=== PATIENT | male | born 1990 | race Caucasian/White ===

== ENCOUNTER 2020-08-23 10:25 | Emergency (ER) | payer BC, SELFPAY ==
[2020-08-23 10:35] VITALS: BP 152/111; PULSE 79; RESP 20; TEMP 36.1; O2SAT 98; BMI 33.0
--- NOTE | 2020-08-23 10:49 | HMH.EDUTC ---
[facility] [place] Disposition Clinical Impression: Viral upper respiratory infection Disposition: Home, Self-Care Condition on Discharge: Good Instructions: Sore Throat, DI for COVID-19 (Suspected or Confirmed ), Coronavirus Disease 2019, Preventing the Spread of Coronavirus Discharge Instructions Additional Instructions: *Monitor Temp, Over the counter Motrin or Tylenol as directed/as needed Tylenol every 4 hours and Motrin every 6 hours (as long as your family doctor has told you that you can take it) for fever or pain. and straight to ER if unable to lower temp less than 101.0 after medication given *Warm salt water gargles may help to soothe the throat *Throat Lozenges *Warm fluids like tea with honey may help to soothe the throat *Sleep elevated *Humidifier/Vaporizer Your throat swab was sent for culture. Those results are typically sent to your primary care. Be sure to follow up in 2-3 days with your family doctor/primary care physician if no improvement so they can review those result and treat if necessary. If you don?t have a primary care doctor, I recommend you get one but in the mean time, you will have to return to a walk in clinic Follow up IMMEDIATELY for new or worsening symptoms or no Noticeable improvement over the next 48-72 hours. 911 for difficulty breathing or swallowing You were tested for today for COVID19 your test result should be back in the next 24-48 hours, you may call to the [facility] to see if your test results are back in the next 48 hours [phone] [facility] hours are 9am-9pm You was given a handout with instructions for Self Quarantine and Self isolation for while you wait on test results and what to do if they are positive If you are positive the Health Dept will be contacting you also Referrals: Scott Hooks MD [Primary Care Provider] - As needed Forms: Work/School Release Time of Disposition: 11:07 Medical Decision Making - Harvey Inquiry Pt receiving controlled substance: No Harvey was queried for this patient: No Vital Signs: 08/23/20 10:35 Temperature 97.0 F L Temperature Source Temporal Artery Scan Pulse Rate [Right Brachial] 79 Respiratory Rate 20 Blood Pressure [Right Arm] 152/111 H Blood Pressure Mean [Right Arm] 124 Blood Pressure Source [Right Arm] Automatic Cuff Blood Pressure Position [Right Arm] Sitting 02 Sat by Pulse Oximetry 98 Oxygen Delivery Method Room Air - Lab Data Lab results reviewed: Yes: I reviewed the patient's lab results. Orders (Tests/Meds): ORDERS Category Date Time Status Covid-19 Nasal PCR ([facility]) Routine Lab 08/23/20 10:33 Ordered [facility] [place] HPI - General Stated complaint: congestion, no taste or smell,covid test Time Seen by Provider: 08/23/20 10:49 Mode of Arrival: Ambulatory Source of Information: Patient Limitations: No Limitations Description of Symptoms (Recalled from Triage Doc. by RN): PATIENT C/O HEAD CONGESTION SINCE MONDAY AND LOSS OF TASTE AND SMELL SINCE MONDAY. REQUESTING COVID TEST HEENT Symptoms (Recalled from RN notes): Yes Resp Symptoms (Recalled from RN notes): No Skin Symptoms (Recalled from RN notes): No MS Symptoms (Recalled from RN notes): No Functional Status (Recalled from RN notes): WNL - History of Present Illness Provider Complaint: Patient states that he has been having head congestion sore scratchy throat and noticed he loss his sense of taste and smell on Monday State that he hasnt had fever that he is aware of and no coughing but was concerned and wanted to get tested for COVID - Related Data Home Medications Medication Instructions Recorded Confirmed No Known Home Medications 08/23/20 08/23/20 Allergies Allergy/AdvReac Type Severity Reaction Status Date / Time No Known Allergies Allergy Verified 10/03/19 12:54 - Worker's Comp Is this a Worker's Comp case?: No [facility] History - Hepatitis A Screen Drug use history?: No High risk sexual behaviors?: No History of sexually transmitted inf
[2020-08-23 11:09] VITALS: BP 152/111; PULSE 79; RESP 20; TEMP 36.1; O2SAT 98
[2020-08-23 11:13] LABS: UTC Strep Screen (Rapid) Negative (Negative)
[2020-08-23 11:15] LABS: UTC Influenza A Antigen Negative (Negative); UTC Influenza B Antigen Negative (Negative)
--- NOTE | 2020-08-23 20:31 | PC.NURSE ---
ATTEMPTED TO CALL PT AND NO ANSWER, WILL TRY AGAIN LATER
--- NOTE | 2020-08-23 20:48 | PC.NURSE ---
pt notified of positive covid test result
== END 2020-08-23 11:11 | disposition home or self-care (01) ==
PROVIDERS: Emergency Provider Nurse Practitioner; PCP Family Medicine
DX: U07.1 COVID-19 (principal)
CPT/HCPCS: 87804; 87880; 99202; G0463; U0003

== ENCOUNTER 2023-10-19 18:51 | Outpatient (CLI) | payer BC, SELFPAY | END 2023-10-19 23:59 | LOC: LAB.DROPOF 18:51 | PROVIDERS: PCP Student in an Organized Health Care Education/Training Program; Visit Provider Student in an Organized Health Care Education/Training Program | DX: J02.9 Acute pharyngitis, unspecified (principal); R05.9 Cough, unspecified; R53.83 Other fatigue | CPT/HCPCS: 87070; 87635 ==

== ENCOUNTER 2024-04-14 10:36 | Emergency (ER) | payer BC, SELFPAY ==
[2024-04-14 11:15] VITALS: BP 145/107; PULSE 104; RESP 20; TEMP 36.8; O2SAT 98; BMI 36.1
--- NOTE | 2024-04-14 11:31 | ED_ITS ---
Discharge Plan Disposition Patient Disposition: Home, Self-Care Condition: Good Prescriptions Prescriptions: No Action No Known Home Medications Referrals Follow up/Referrals: Provider,Referral, MD [Primary Care Provider] - See instructions Activity Restrictions/Add. Instructions Additional Instructions/Restrictions: *Monitor Temp, Over the counter Motrin or Tylenol as directed/as needed Tylenol every 4 hours and Motrin every 6 hours (as long as your family doctor has told you that you can take it) for fever or pain. and straight to ER if unable to lower temp less than 101.0 after medication given *Warm salt water gargles may help to soothe the throat *Throat Lozenges? *Warm fluids like tea with honey may help to soothe the throat? *Sleep elevated *Humidifier/Vaporizer *Flonase 2 sprays in each nostril daily but be aware that it may take 2-3 days before you notice improvement *Bromfed may cause drowsiness. Know how it effects you (your child) before driving, caring for small child, or sending your child to school. Not other antihistamines/allergy medications while taking bromfed Your throat swab was sent for culture. Those results are typically sent to your primary care. Be sure to follow up in 2-3 days with your family doctor/primary care physician if no improvement so they can review those result and treat if necessary. If you don?t have a primary care doctor, I recommend you get one but in the mean time, you will have to return to a walk in clinic Follow up IMMEDIATELY for new or worsening symptoms or no Noticeable impr ovement over the next 48-72 hours. 911 for difficulty breathing or swallowing You were tested for today for COVID19 your test result should be back in the next 24 hours, you may check your results on the [facility] [employer] [facility] Clinical Impressions Clinical Impression: Viral upper respiratory infection Instructions Patient Instructions: COVID-19: Testing and Tracing, DI for COVID-19 (Suspected or Confirmed ), DI for Nasal Congestion Print Language Print Language: Croatian Discharge ED Provider: Montserrat Lafleur [facility] [place] HPI General Stated complaint: congestion, no taste/smell Mode of Arrival: Ambulatory Source of Information: Patient Limitations: No Limitations Time Seen by Provider: 04/14/24 11:31 Description of Symptoms (Recalled from Triage Doc. by RN): PATIENT C/O CONGESTION AND LOSS OF TASTE AND SMELL SINCE YESTERDAY HEENT Symptoms (Recalled from RN notes): Yes Resp Symptoms (Recalled from RN notes): No Skin Symptoms (Recalled from RN notes): No MS Symptoms (Recalled from RN notes): No Functional Status (Recalled from RN notes): WNL History of Present Illness Provider Complaint: Patient states that he recently got back from a Cruise and yesterday when he was eating he noticed he couldnt taste that much and this morning he woke up with nasal congestion and loss of taste and smell so he came in worried he may have COVID Related Data Home Medications ?Medication ?Instructions ?Recorded ?Confirmed No Known Home Medications 04/14/24 04/14/24 Allergies Allergy/AdvReac Type Severity Reaction Status Date / Time No Known Allergies Allergy Verified 10/19/23 08:18 Worker's Comp Is this a Worker's Comp case?: No [facility] Disclaimer: The information contained in this section may have been updated after the patient was seen, as this information can be updated by other users. Medical History No significant past medical history Surgical History No significant past surgical history Family History Other No significant family history Social History Smoking Status: Never smoker alcohol intake: never substance use type: denies use current occupational status: employed Travel in the last 8 weeks: Inside the [place] household members: family housing: house ROS Obtained: Yes All systems reviewed & no additional complaints except as documented and Yes Systems reviewed as appropriate & no additional complaints except as documented Constitutional Constitutional: Reports system reviewed and no additional complaints, except as documented and Reports as per HPI Eyes Eyes: Reports system reviewed and no additional complaints, except as documented and Reports as per HPI ENT Ears, Nose, Mouth, and Throat: Reports system reviewed and no additional complaints, except as documented, Reports as per HPI, Reports nasal congestion and Reports other (loss of taste and smell) Cardiovascular Cardiovascular: Reports system reviewed and no additional complaints, except as documented and Reports as per HPI Respiratory Respiratory: Reports system reviewed and no additional complaints, except as documented and Reports as per HPI Gastrointestinal Gastrointestingal: Reports system reviewed and no additional complaints, except as documented and as per HPI Physical Exam General General appearance: alert and in no apparent distress ENT ENT exam: Present mucous membranes moist Expanded ENT Exam Nose exam: Present other (reports nasal congestion started this morning); Absent sinus tenderness Respiratory Respiratory exam: Present normal lung sounds bilaterally; Absent respiratory distress or wheezes Cardiovascular Cardiovascular exam: Present regular rate, normal rhythm and normal heart sounds Abdominal Exam Abdominal exam: Present soft and normal bowel sounds; Absent distention or tenderness Neurological Exam Neurological exam: Present alert, oriented X3 and normal gait Medical Decision Making Harvey Inquiry Pt receiving controlled substance: No Harvey was queried for this patient: No Vital Signs: 04/14/24 11:15 Temperature 98.2 F Temperature Source Oral Pulse Rate [Left Brachial] 104 H Respiratory Rate 20 Blood Pressure [Left Arm] 145/107 H Blood Pressure Mean [Left Arm] 119 Blood Pressure Source [Left Arm] Automatic Cuff Blood Pressure Position [Left Arm] Sitting 02 Sat by Pulse Oximetry 98 Oxygen Delivery Method Room Air Orders (Tests/Meds): ORDERS Category Date Time Status Covid-19 Nasal PCR ([facility]) Routine Lab 04/14/24 11:15 Received
[2024-04-14 11:37] VITALS: BP 145/107; PULSE 104; RESP 20; TEMP 36.8; O2SAT 98
== END 2024-04-14 11:42 | disposition home or self-care (01) ==
PROVIDERS: Emergency Provider Nurse Practitioner
DX: U07.1 COVID-19 (principal); R09.81 Nasal congestion; R43.9 Unspecified disturbances of smell and taste
CPT/HCPCS: 87635; 99203; 99212; G0463

== ENCOUNTER 2024-09-04 08:24 | Outpatient (CLI) | payer BC, SELFPAY ==
[2024-09-04 17:45] LABS: Coronavirus 19, PCR Not Detected (NotDetected); Human Rhinovirus Not Detected (NotDetected); Influenza A, PCR Not Detected (NotDetected); Influenza B, PCR Not Detected (NotDetected); Respiratory Syncytial Virus Not Detected (NotDetected)
== END 2024-09-04 23:59 | disposition home or self-care (01) ==
LOC: LAB.DROPOF 09-06 08:25
PROVIDERS: PCP Nurse Practitioner Family; Visit Provider Nurse Practitioner Family
DX: H66.91 Otitis media, unspecified, right ear (principal); J06.9 Acute upper respiratory infection, unspecified
CPT/HCPCS: 87631

== ENCOUNTER 2025-06-30 09:45 | Outpatient (CLI) | payer BC, SELFPAY ==
--- NOTE | 2025-06-30 09:48 | XR_ITS ---
FINAL REPORT CLINICAL HISTORY: low back pain radiates down right side leg, new onset FINDINGS: AP and lateral views of the lumbar spine were obtained. There is no prior exam for comparison. There is no acute fracture or malalignment. Vertebral body height is preserved. There are small anterior osteophyte formation at L5. No acute paraspinal abnormality. IMPRESSION: No acute osseous abnormality of the lumbar spine. Small anterior osteophyte formation at L5. Reviewed, Interpreted and Dictated by Constance Montelongo MD Transcribed by Sara Green Authenticated and . [facility]
== END 2025-06-30 23:59 | disposition home or self-care (01) ==
LOC: RAD 09:46
PROVIDERS: PCP Nurse Practitioner Family; Visit Provider Student in an Organized Health Care Education/Training Program
DX: M25.78 Osteophyte, vertebrae (principal)
CPT/HCPCS: 72100